=== PATIENT | male | born 1990 | race Caucasian/White ===

== ENCOUNTER 2024-06-11 21:11 | Emergency (ER) | payer BC ==
[2024-06-11] MEDS ORDERED: Sodium Chloride 0.9% 10 ML Syringe FLUSH PRN (21:14)
[2024-06-11] MEDS: Lactated Ringers 1,000 ML IV ONE (21:28)
[2024-06-11] MEDS: HYDROmorphone 1 MG/ML Syringe IVPUSH ONE (21:28)
[2024-06-11] MEDS: droPERidol 5 MG/2 ML SDV IVPUSH ONE (21:32)
[2024-06-11 21:45] LABS: HEMATOCRIT 44.6 % (40.0-52.0); HEMOGLOBIN 15.5 g/dL (14.0-18.0); MEAN CORPUSCULAR HEMOGLOBIN 28.7 pg (26.0-32.0); MEAN CORPUSCULAR HGB CONC 34.8 g/dL (32.0-36.0); MEAN CORPUSCULAR VOLUME 82.4 fL (78.0-93.0); PLATELET COUNT,PLT 350 x10^3/uL (130-400); RED BLOOD CELL COUNT 5.41 x10^6/uL (4.5-6.0); WHITE BLOOD CELL COUNT,WBC 11.1 x10^3/uL (4.0-10.0)
[2024-06-11 21:48] LABS: BAND PERCENT MAN 2 % (0-6); EOSINOPHILS ABSOLUTE MAN 0.2 x10^3/uL (0.0-0.5); EOSINOPHILS PERCENT MAN 2 % (0-4); LYMPHOCYTES % ATYPICAL MANUAL 12 % (0); LYMPHOCYTES ABSOLUTE MAN 6.8 x10^3/uL (1.0-4.8); LYMPHOCYTES PERCENT MAN 49 % (25-50); MONOCYTES ABSOLUTE MAN 0.8 x10^3/uL (0.0-0.8); MONOCYTES PERCENT MAN 7 % (2-11); NEUTROPHILS ABSOLUTE MAN 3.3 x10^3/uL (1.8-7.7); SEG NEUTROPHILS PERCENT MAN 28 % (50-80)
[2024-06-11 21:49] LABS: PLATELET COUNT ESTIMATE ADEQUATE
[2024-06-11 21:52] LABS: INR 0.9 (0.9-1.1); PROTHROMBIN TIME 9.9 SEC (9.6-12.0); PTT,PARTIAL THROMBOPLSTIN TIME 24.2 SEC (23.5-33.2)
[2024-06-11 21:58] LABS: LACTIC ACID 1.6 mmol/L (0.4-2.0)
[2024-06-11 22:07] LABS: ALANINE AMINOTRANSFERASE,ALT 86 U/L (16-63); ALBUMIN 4.3 g/dL (3.4-5.0); ALKALINE PHOSPHATASE 94 U/L (46-116); AMYLASE 59 U/L (25-115); ASPARTATE AMNIOTRANSFERASE,AST 69 U/L (15-37); BILIRUBIN TOTAL 0.5 mg/dL (0.2-1.0); BLOOD UREA NITROGEN,BUN 21 mg/dL (7-18); CARBON DIOXIDE,CO2 28 mmol/L (21-32); CHLORIDE,CL 103 mmol/L (98-107); CREATININE 1.1 mg/dL (0.70-1.30); GLUCOSE RANDOM 110 mg/dL (70-99); LIPASE 43 U/L (19-71); MAGNESIUM 2.2 mg/dL (1.8-2.4); POTASSIUM,K 3.7 mmol/L (3.5-5.1); PROTEIN TOTAL,TP 7.6 g/dL (6.4-8.2); SODIUM,NA 142 mmol/L (136-145)
[2024-06-11 22:09] LABS: ANION GAP 14.7 mmol/L (5-15); C-REACTIVE PROTEIN < 0.50 mg/dL (<=0.50); ESTIMATED GFR 90 mL/min (>=60); ETHANOL BLOOD MEDICAL < 3 mg/dL (0-3)
[2024-06-11 22:24] LABS: APPEARANCE,URINE CLEAR (CLEAR); BILIRUBIN,URINE NEGATIVE (NEGATIVE); COLOR,URINE YELLOW (YELLOW); GLUCOSE,URINE NEGATIVE (NEGATIVE); KETONES,URINE NEGATIVE (NEGATIVE); LEUKOCYTE ESTERASE,URINE NEGATIVE (NEGATIVE); NITRITE,URINE NEGATIVE (NEGATIVE); OCCULT BLOOD,URINE NEGATIVE (NEGATIVE); PROTEIN,URINE NEGATIVE (NEGATIVE); UROBILINOGEN,URINE 0.2 EU/dL (0.2)
[2024-06-11] MEDS: Iopamidol 612 MG/ML 100 ML Bottle IVPUSH ONE (22:41)
== END 2024-06-11 23:44 | disposition home or self-care (01) ==
LOC: VM.ED 21:11
DX: R10.10 Upper abdominal pain, unspecified (principal)
CPT/HCPCS: 74177; 80053; 80307; 81003; 82150; 83605; 83690; 83735; 85025; 85610; 85730; 86140; 96361; 96374; 96375; 99284; 99284-25; J1171; J1790; J7120; Q9967